=== PATIENT | female | born 1940 | race Caucasian/White ===

== ENCOUNTER 2022-02-14 16:41 | Observation (INO) | payer MEDICARE, OTHER, SELFPAY ==
[2022-02-14 17:04] VITALS: BP 184/78; PULSE 60; RESP 22; TEMP 36.7; O2SAT 94
--- NOTE | 2022-02-14 17:10 | DI.RAD.S_ITS ---
PROCEDURE: XR CHEST 1V INDICATIONS: chest pain TECHNIQUE: One view of the chest was acquired. COMPARISON: [facility], CR, XR CHEST 2 VIEWS, 10/12/2021, 7:02. [facility], CR, XR CHEST 1 VIEW, 10/11/2021, 20:38. FINDINGS: Surgical changes and devices: A pacer device is seen. The leads are seen in stable positions. Lungs and pleura: Low lung volumes are noted. This causes a crowded appearance to the lung markings and limits evaluation. Mild, streaky opacities are seen at the lung bases. No pneumothorax is seen. Trace blunting of the costophrenic angles can be seen. Mediastinum: Mediastinal contours appear normal. Heart size is normal. Bones and chest wall: No suspicious bony lesions. Age-appropriate bony degenerative changes are seen. Overlying soft tissues appear unremarkable. IMPRESSION: Low lung volumes and mild interstitial prominence, with potential small pleural effusions. If clinically appropriate, a short-term followup chest series (with PA and lateral views) performed in deep inspiration is suggested for further evaluation. Stable pacer device. Dictated by: Lucas Figueroa M.D. on 02/14/2022 at 16:42 Approved by: Lucas Figueroa M.D. on 02/14/2022 at 16:44
[2022-02-14 17:37] LABS: Add Manual Diff / Slide Review NO; Basophils Absolute Auto 0 /uL (0-100); Basophils Percent Auto 0.6 % (0-2); Eosinophils Absolute Auto 200 /uL (0-450); Eosinophils Percent Auto 2.5 % (2-4); Hematocrit 30.4 % (36-46); Hemoglobin 10.4 g/dL (12.0-16.0); Lymphocytes Absolute Auto 400 /uL (1100-4500); Mean Corpuscular HGB Conc 34.3 % (30-36); Mean Corpuscular Hemoglobin 31.5 PG (26-34); Mean Corpuscular Volume 91.8 fL (80-100); Monocytes Absolute Auto 500 /uL (0-900); Monocytes Percent Auto 5.8 % (3-14); Neutrophils Absolute Auto 6700 /uL (1500-7000); Neutrophils Percent Auto 86.1 % (50-75); Platelet Count 170 X10^3/uL (150-400); Red Blood Cell Count 3.31 X10^6/uL (4.0-5.2); Red Cell Distribution Width 14.2 % (11.6-14.8); White Blood Cell Count 7.8 X10^3/uL (4.5-11.0)
[2022-02-14 17:56] LABS: Prothrombin Time 46.4 SECONDS (10.1-12.7)
[2022-02-14 18:02] LABS: Alanine Aminotransferase 19 IU/L (<35); Albumin 3.7 g/dL (3.5-5.0); Albumin Globulin Ratio 1.2 (1.0-2.8); Alkaline Phosphatase 118 U/L (38-126); Aspartate Aminotransferase 27 IU/L (14-36); BUN Creatinine Ratio 21.8 (6-22); Bilirubin Total 0.6 mg/dL (0.2-1.3); Blood Urea Nitrogen 29 mg/dL (7-17); Calcium 8.4 mg/dL (8.4-10.2); Carbon Dioxide 23 mmol/L (22-32); Chloride 109 mmol/L (98-107); Creatine Kinase 61 U/L (30-135); Estimated Glomerular Filt Rate 40 mL/min (>60); Glucose 110 mg/dL (80-110); HEMOLYSIS < 15 (0-50); Lipase 70 U/L (23-300); Magnesium 1.8 mg/dL (1.6-2.3); Potassium 4.9 mmol/L (3.4-5.1); Sodium 139 mmol/L (137-145); Total Protein 6.7 g/dL (6.3-8.2)
[2022-02-14 18:13] LABS: Troponin I 0.017 ng/mL (0.01-0.034)
[2022-02-14 20:19] VITALS: BP 217/86; PULSE 64; RESP 18; O2SAT 98
--- NOTE | 2022-02-14 21:28 | ED_ITS ---
HPI - GI Bleed General Chief complaint: GI Bleed Stated complaint: pain to back of both legs/GI BLEED/SOB/BP HIGH Time Seen by Provider: 02/14/22 21:27 Source: patient and family Mode of arrival: Ambulatory History of Present Illness HPI Narrative: Patient is an 81-year-old female history of atrial fibrillation on warfarin presenting today with a variety of complaints. She has had ongoing sciatic like pain down her legs for about 2 months. She was put on prednisone by her primary care provider which did seem to help but now she is having increased pain again. For the last few days she has had some black stool numerous episodes. She has not have any abdominal pain no nausea vomiting. She is having some shortness of breath with exertion as well minimal orthopnea. No real chest pain or palpitations. She has not had any fever or chills. She went to walk-in clinic today the which was concerned for a GI bleed with the black stool on warfarin. Apparently she was guaiaced there and a was positive. She says she was in quite a bit of pain at home today her son tried to take her blood pressure with wrist cough and you read over 200. She is also noted to be quite hypertensive here as well. Related Data Allergies Allergy/AdvReac Type Severity Reaction Status Date / Time lisinopril Allergy Verified 02/14/22 22:57 Review of Systems Review of Systems Narrative: GENERAL: Denies chills, fatigue, malaise, fever, sweats, travel HEENT: Denies sinus pain, ear pain, sore throat, difficulty swallowing, neck pain RESPIRATORY see HPI CARDIOVASCULAR: Denies chest pain, palpitations, orthopnea, edema GASTROINTESTINAL: Denies nausea, vomiting, abdominal pain, diarrhea, constipation, melena. : Denies dysuria, frequency, incontinence, hematuria, urinary retention, flank pain. MUSCULOSKELETAL: See HPI SKIN: No rash, no erythema, no pruritus NEUROLOGIC: Denies weakness, dizziness, headache, numbness, change in speech, confusion PSYCHIATRIC: No concerning psychosocial issues. 12 point review of systems is negative except for those stated above and HPI Patient History Medical History (Updated 02/15/22 @ 06:49 by Trudy Chinchilla DO) Benign essential hypertension (Unknown) Chronic anticoagulation Chronic atrial fibrillation Surgical History (Updated 02/15/22 @ 06:46 by Marlon Morales MD) History of 2 sections History of carpal tunnel surgery Social History household members: family Smoking Status: Former smoker alcohol intake: never Exam Initial Vital Signs Initial Vital Signs: Vital Signs Temperature 98.0 F 02/14/22 17:04 Pulse Rate 60 02/14/22 17:04 Respiratory Rate 22 02/14/22 17:04 Blood Pressure 184/78 H 02/14/22 17:04 Pulse Oximetry 94 02/14/22 17:04 Oxygen Delivery Method 02/14/22 17:04 GENERAL: Alert pleasant 81-year-old female and in no acute distress. HEENT: Head atraumatic,EOMI, pupils reactive, face symmetric, moist mucous membranes CARDIOVASCULAR: Regular rate and rhythm without murmurs, rubs or gallops. RESPIRATORY: Breath sounds equal bilaterally, no wheezes rales or rhonchi. ABDOMEN: Soft, nontender. Normoactive bowel sounds all 4 quadrants. No guarding or rebound. EXTREMITIES: Normal range of motion, no clubbing or edema. Neurovascularly intact NEUROLOGICAL: Alert and oriented x4.Normal gait and speech. SKIN: Warm, dry, no laceration, no petechiae, no rashes or lesions. Course Orders Ordered: ED Orders 02/14/22 22:07 BNP [NT-proBNP (BNP-Adult 18+)] Stat Hemoglobin and Hematocrit Stat Troponin & CK Cardiac Panel Stat 02/14/22 22:22 Lactate (Lactic Acid) Stat 02/15/22 00:07 COVID19 - ADMIT (RN HEMO DIALYSIS swab/PCR) Stat 02/15/22 00:22 CT angio chest abdomen pelvis Stat Acetaminophen (Acetaminophen 325 Mg Tablet) 975 mg PO Q8H PRN PRN Reason: Pain, Mild (1-3) Last Admin: 02/15/22 03:52 Dose: 975 mg Documented By: CB Losartan Potassium (Losartan 50 Mg Tablet) 100 mg PO DAILY IVETT Last Admin: 02/15/22 03:51 Dose: 100 mg Documented By: CB Morphine Sulfate (Morphine 2 Mg/Ml Inj) 2 mg IV Q4H PRN PRN Reason: Breakthrough pain only (8-10) Ondansetron HCl (Ondansetron 4 Mg/2 Ml Inj) 4 mg IV Q8HR PRN PRN Reason: Nausea And Vomiting Oxycodone HCl (Oxycodone Ir 5 Mg Tablet) 5 mg PO Q4HR PRN PRN Reason: Pain, Moderate (4-6) Discontinued Medications Furosemide (Furosemide 40 Mg/4 Ml Vial) 20 mg IV NOW ONE Stop: 02/14/22 22:51 Last Admin: 02/14/22 23:16 Dose: 20 mg Documented By: KATYA Nicardipine HCl 25 mg/ Sodium (Chloride) 250 mls @ 50 mls/hr IV TITRATE IVETT; Protocol Labetalol HCl (Labetalol 20 Mg/4 Ml Syringe) 5 mg IV NOW ONE Stop: 02/15/22 00:03 Last Admin: 02/15/22 00:09 Dose: 5 mg Documented By: KATYA Labetalol HCl (Labetalol 20 Mg/4 Ml Syringe) 10 mg IV NOW ONE Stop: 02/15/22 00:17 Last Admin: 02/15/22 03:04 Dose: 10 mg Documented By: ISAURA Morphine Sulfate (Morphine 2 Mg/Ml Inj) 2 mg IV NOW ONE Stop: 02/14/22 22:55 Last Admin: 02/15/22 00:01 Dose: 2 mg Documented By: KATYA Vital Signs Vital signs: Vital Signs - 8 hr 02/14/22 23:48 02/14/22 23:58 02/15/22 00:00 Pulse Rate 61 63 Respiratory Rate 20 18 Blood Pressure 190/84 H 234/95 H Pulse Oximetry 96 88 L 96 Oxygen Delivery Method Room Air Room Air 02/15/22 00:20 02/15/22 01:34 Pulse Rate 68 66 Respiratory Rate 18 18 Blood Pressure 207/117 H 139/80 Pulse Oximetry 95 96 Oxygen Delivery Method Room Air Room Air MDM - GI Bleed Lab Data Result diagrams: 02/14/22 22:07 02/14/22 17:23 Labs: Lab Results 02/14/22 02/14/22 02/14/22 Range/Units 17:23 17:23 17:23 WBC 7.8 (4.5-11.0) X10^3/uL RBC 3.31 L (4.0-5.2) X10^6/uL Hgb 10.4 L (12.0-16.0) g/dL Hct 30.4 L (36-46) % MCV 91.8 (80-100) fL MCH 31.5 (26-34) PG MCHC 34.3 (30-36) % RDW 14.2 (11.6-14.8) % Plt Count 170 (150-400) X10^3/uL Neut % (Auto) 86.1 H (50-75) % Lymph % (Auto) 5.0 L (25-40) % Billings % (Auto) 5.8 (3-14) % Eos % (Auto) 2.5 (2-4) % Baso % (Auto) 0.6 (0-2) % Neut # (Auto) 6700 (5485-6866) /uL Lymph # (Auto) 400 L (1567-4886) /uL Billings # (Auto) 500 (0-900) /uL Eos # (Auto) 200 (0-450) /uL Baso # (Auto) 0 (0-100) /uL PT 46.4 H (10.1-12.7) SECONDS INR 4.0 H (0.9-1.3) Sodium 139 (137-145) mmol/L Potassium 4.9 (3.4-5.1) mmol/L Chloride 109 H (98-107) mmol/L Carbon Dioxide 23 (22-32) mmol/L BUN 29 H (7-17) mg/dL Creatinine 1.33 H (0.52-1.04) mg/dL Estimated GFR 40 L (>60) mL/min BUN/Creatinine Ratio 21.8 (6-22) Glucose 110 (80-110) mg/dL Lactate (0.7-2.1) mmol/L Calcium 8.4 (8.4-10.2) mg/dL Magnesium 1.8 (1.6-2.3) mg/dL Total Bilirubin 0.6 (0.2-1.3) mg/dL AST 27 (14-36) IU/L ALT 19 (<35) IU/L Alkaline Phosphatase 118 (38-126) U/L Total Creatine Kinase 61 (30-135) U/L CK-MB (CK-2) TNP CK-MB (CK-2) Rel Index TNP Troponin I 0.017 (0.01-0.034) ng/mL NT-Pro-B Natriuret Pep (<450) pg/mL Total Protein 6.7 (6.3-8.2) g/dL Albumin 3.7 (3.5-5.0) g/dL Globulin 3.0 (1.7-4.1) g/dL Albumin/Globulin Ratio 1.2 (1.0-2.8) Lipase 70 (23-300) U/L SARS-CoV-2 (PCR) (Negative) 02/14/22 02/14/22 02/14/22 Range/Units 22:07 22:07 22:22 WBC (4.5-11.0) X10^3/uL RBC (4.0-5.2) X10^6/uL Hgb 10.7 L (12.0-16.0) g/dL Hct 30.8 L (36-46) % MCV (80-100) fL MCH (26-34) PG MCHC (30-36) % RDW (11.6-14.8) % Plt Count (150-400) X10^3/uL Neut % (Auto) (50-75) % Lymph % (Auto) (25-40) % Billings % (Auto) (3-14) % Eos % (Auto) (2-4) % Baso % (Auto) (0-2) % Neut # (Auto) (7044-7534) /uL Lymph # (Auto) (3446-3408) /uL Billings # (Auto) (0-900) /uL Eos # (Auto) (0-450) /uL Baso # (Auto) (0-100) /uL PT (10.1-12.7) SECONDS INR (0.9-1.3) Sodium (137-145) mmol/L Potassium (3.4-5.1) mmol/L Chloride (98-107) mmol/L Carbon Dioxide (22-32) mmol/L BUN (7-17) mg/dL Creatinine (0.52-1.04) mg/dL Estimated GFR (>60) mL/min BUN/Creatinine Ratio (6-22) Glucose (80-110) mg/dL Lactate 1.2 (0.7-2.1) mmol/L Calcium (8.4-10.2) mg/dL Magnesium (1.6-2.3) mg/dL Total Bilirubin (0.2-1.3) mg/dL AST (14-36) IU/L ALT (<35) IU/L Alkaline Phosphatase (38-126) U/L Total Creatine Kinase 58 (30-135) U/L CK-MB (CK-2) TNP CK-MB (CK-2) Rel Index TNP Troponin I 0.027 (0.01-0.034) ng/mL NT-Pro-B Natriuret Pep 5540 H (<450) pg/mL Total Protein (6.3-8.2) g/dL Albumin (3.5-5.0) g/dL Globulin (1.7-4.1) g/dL Albumin/Globulin Ratio (1.0-2.8) Lipase (23-300) U/L SARS-CoV-2 (PCR) (Negative) 02/15/22 Range/Units 00:07 WBC (4.5-11.0) X10^3/uL RBC (4.0-5.2) X10^6/uL Hgb (12.0-16.0) g/dL Hct (36-46) % MCV (80-100) fL MCH (26-34) PG MCHC (30-36) % RDW (11.6-14.8) % Plt Count (150-400) X10^3/uL Neut % (Auto) (50-75) % Lymph % (Auto) (25-40) % Billings % (Auto) (3-14) % Eos % (Auto) (2-4) % Baso % (Auto) (0-2) % Neut # (Auto) (7220-4560) /uL Lymph # (Auto) (2020-4000) /uL Billings # (Auto) (0-900) /uL Eos # (Auto) (0-450) /uL Baso # (Auto) (0-100) /uL PT (10.1-12.7) SECONDS INR (0.9-1.3) Sodium (137-145) mmol/L Potassium (3.4-5.1) mmol/L Chloride (98-107) mmol/L Carbon Dioxide (22-32) mmol/L BUN (7-17) mg/dL Creatinine (0.52-1.04) mg/dL Estimated GFR (>60) mL/min BUN/Creatinine Ratio (6-22) Glucose (80-110) mg/dL Lactate (0.7-2.1) mmol/L Calcium (8.4-10.2) mg/dL Magnesium (1.6-2.3) mg/dL Total Bilirubin (0.2-1.3) mg/dL AST (14-36) IU/L ALT (<35) IU/L Alkaline Phosphatase (38-126) U/L Total Creatine Kinase (30-135) U/L CK-MB (CK-2) CK-MB (CK-2) Rel Index Troponin I (0.01-0.034) ng/mL NT-Pro-B Natriuret Pep (<450) pg/mL Total Protein (6.3-8.2) g/dL Albumin (3.5-5.0) g/dL Globulin (1.7-4.1) g/dL Albumin/Globulin Ratio (1.0-2.8) Lipase (23-300) U/L SARS-CoV-2 (PCR) Negative (Negative) Imaging Data Chest x-ray: Radiologist's Impression: [address] [address] XRay Report Signed Patient: MARIEL QUINTEROS MR#: [id number] : 1940 Acct:[id number] Age/Sex: 81 / F Date of Service: 02/14/22 Loc: ED Accession Number: [id number] ?? Procedure: XR chest 1V Ordering Provider: Stephani Rendon D.O. PROCEDURE:? XR CHEST 1V ? INDICATIONS:? chest pain ? TECHNIQUE:? One view of the chest was acquired.? ? COMPARISON:? [facility], CR, XR CHEST 2 VIEWS, 10/12/2021, 7:02.? [facility], CR, XR CHEST 1 VIEW, 10/11/2021, 20:38. ? FINDINGS:? ? Surgical changes and devices:? A pacer device is seen.? The leads are seen in stable positions.? ? Lungs and pleura:? Low lung volumes are noted. This causes a crowded appearance to the lung markings and limits evaluation.? Mild, streaky opacities are seen at the lung bases. ?No pneumothorax is seen.? Trace blunting of the costophrenic angles can be seen. ? Mediastinum:? Mediastinal contours appear normal.? Heart size is normal.? ? Bones and chest wall:? No suspicious bony lesions.? Age-appropriate bony degenerative changes are seen.? Overlying soft tissues appear unremarkable.? ? ? IMPRESSION:? Low lung volumes and mild interstitial prominence, with potential small pleural effusions. ? If clinically appropriate, a short-term followup chest series (with PA and lateral views) performed in deep inspiration is suggested for further evaluation.? ? Stable pacer device. ? ? Dictated by: Lucas Figueroa M.D. on 02/14/2022 at 16:42 ? ? CT scan - head: Radiologist's Impression: CT Scan Report Signed Patient: MARIEL QUINTEROS MR#: [id number] : 1940 Acct:[id number] Age/Sex: 81 / F Date of Service: 02/14/22 Loc: ED Accession Number: [id number] ?? Procedure: CT head/brain wo con Ordering Provider: Trudy Chinchilla D.O. PROCEDURE:? CT HEAD/BRAIN WO CON ? INDICATIONS:? high inr headache ? TECHNIQUE:? Noncontrast 4.5 mm thick angled axial sections acquired from the foramen magnum to the vertex, with coronal and sagittal reformats.? For radiation dose reduction, the following was used:? automated exposure control, adjustment of mA and/or kV according to patient size.? ? COMPARISON:? None. ? FINDINGS:? Image quality:? Excellent.? ? CSF spaces:? Basal cisterns are patent.? No extra-axial fluid collections.? There is mild cerebral volume loss, with resultant ventricular and sulcal prominence.? ? Brain:? No intracranial hemorrhage, mass, or mass effect.? There are subcortical, periventricular and deep white matter hypodensities consistent with mild chronic small vessel ischemic changes.? The guan-white matter junction appears preserved.? There is intracranial internal carotid artery atherosclerosis.? ? Skull and face:? Calvarium and visualized facial bones appear intact, without suspicious lesions.? ? Sinuses:? Visualized sinuses and mastoids are clear.? ? IMPRESSION:? ? 1. No acute intracranial abnormality. ? 2. Mild chronic white matter small vessel ischemic changes and cerebral volume loss.? ? ? Dictated by: Tino Rico M.D. on 02/14/2022 at 22:29 ?? ECG Data Interpretation: Normal sinus rhythm rate 60 p.r. interval 222 QRS [address] changes no T- wave inversions no priors to compare paced rhythm MDM Narrative Medical decision making narrative: Patient is here for possible GI bleed however she has quite variety of symptoms. Ongoing sciatic pain has been there for at least 2 months. She is noted to be extremely hypertensive which is fairly persistent. Concern that she may have peripheral vascular disease or aortic disease CT angio was ordered which did reveal small ascending thoracic aneurysm of 4.2 cm. However she has absolutely no chest pain. Her hemoglobin is stable x2 no bloody bowel movements here in the ED. she does have an elevated BNP which would explain her dyspnea with exertion. No prior history of congestive heart failure. Possible is hypertensive emergency with elevated blood pressures and elevated BNP. She is given 5 mg of labetalol and blood pressure decreases to 139. Dr. Banda updated patient's symptoms test results and agrees for admission Discharge Plan Departure Patient Disposition: Admitted As Inpatient Clinical Impression: Hypertensive emergency, Chronic atrial fibrillation Admit Date/Time: 02/15/22 01:55 Admit Provider: Marlon Morales
[2022-02-14 21:30] VITALS: PULSE 94; RESP 24; O2SAT 89
--- NOTE | 2022-02-14 21:41 | DI.CT.S_ITS ---
PROCEDURE: CT HEAD/BRAIN WO CON INDICATIONS: high inr headache TECHNIQUE: Noncontrast 4.5 mm thick angled axial sections acquired from the foramen magnum to the vertex, with coronal and sagittal reformats. For radiation dose reduction, the following was used: automated exposure control, adjustment of mA and/or kV according to patient size. COMPARISON: None. FINDINGS: Image quality: Excellent. CSF spaces: Basal cisterns are patent. No extra-axial fluid collections. There is mild cerebral volume loss, with resultant ventricular and sulcal prominence. Brain: No intracranial hemorrhage, mass, or mass effect. There are subcortical, periventricular and deep white matter hypodensities consistent with mild chronic small vessel ischemic changes. The guan-white matter junction appears preserved. There is intracranial internal carotid artery atherosclerosis. Skull and face: Calvarium and visualized facial bones appear intact, without suspicious lesions. Sinuses: Visualized sinuses and mastoids are clear. IMPRESSION: 1. No acute intracranial abnormality. 2. Mild chronic white matter small vessel ischemic changes and cerebral volume loss. Dictated by: Tino Rico M.D. on 02/14/2022 at 22:29 Approved by: Tino Rico M.D. on 02/14/2022 at 22:31
[2022-02-14 22:16] LABS: Hematocrit 30.8 % (36-46); Hemoglobin 10.7 g/dL (12.0-16.0)
[2022-02-14 22:25] LABS: Creatine Kinase 58 U/L (30-135)
[2022-02-14 22:38] LABS: NT-proBNP (BNP-Adult 18+) 5540 pg/mL (<450); Troponin I 0.027 ng/mL (0.01-0.034)
[2022-02-14 22:46] LABS: Lactate (Lactic Acid) 1.2 mmol/L (0.7-2.1)
[2022-02-14] MEDS: FUROSEMIDE 40 MG/4 ML VIAL 20 MG IV (23:16)
[2022-02-14 23:48] VITALS: BP 190/84; PULSE 61; RESP 20; O2SAT 96
[2022-02-14 23:58] VITALS: O2SAT 88
[2022-02-15] VITALS (11 sets, daily range): BP systolic 139–234; BP diastolic 63–117; PULSE 62–78; RESP 17–18; TEMP 36.2–36.8; O2SAT 95–96; BMI 32.1
[2022-02-15] MEDS: MORPHINE 2 MG/ML INJ IV ×2 (00:01→09:27)
[2022-02-15] MEDS: LABETALOL 20 MG/4 ML SYRINGE 5 MG IV (00:09)
--- NOTE | 2022-02-15 00:22 | DI.CT.S_ITS ---
PROCEDURE: CT ANGIO CHEST ABDOMEN PELVIS INDICATIONS: htn r/o dissection TECHNIQUE: Precontrast 5 mm thick sections acquired from the lung apices to the iliac crests. After the administration of intravenous contrast, 2.5 mm thick sections again acquired from the lung apices to the iliac crests. Maximum intensity projection (MIP) oblique sagittal and coronal reformats were then acquired. For radiation dose reduction, the following was used: automated exposure control. COMPARISON: [facility], CR, XR CHEST 1V, 02/14/2022, 17:10. FINDINGS: Image quality: Excellent. AORTA: Noncontrast images demonstrate no evidence of intramural hematoma. The aorta is normal in contour without intimal flaps to suggest dissection. There is mild aneurysmal dilatation of the ascending thoracic aorta which measures up to 4.2 cm in diameter. The aortic arch is normal in caliber, measuring up to 2.4 cm at the vertex. The proximal descending thoracic aorta is also normal in caliber, measuring up to 2.6 cm. There is conventional branching of the aortic arch. The visualized great vessels are normal in caliber and appear patent. The celiac, superior mesenteric, and inferior mesenteric arteries are patent. There is mild calcified plaque at their origins with narrowing of less than 50%. There is an accessory left renal artery. The renal arteries appear patent with mild calcified plaque associated with mild narrowing of approximately 50% at the origin of the right renal artery. The common, external, and internal iliac arteries appear patent. The common femoral and visualized proximal superficial femoral arteries appear patent. CHEST: Lower Neck: No lymphadenopathy by size criteria. Thyroid: Visualized thyroid demonstrates a small hypoattenuating left nodule measuring up to 0.8 cm. Axillae: No lymphadenopathy by size criteria. Chest Wall: There are bilateral breast implants noted. Curvilinear densities within each implant are suggestive of intracapsular rupture. Bones: Visualized osseous structures demonstrate no suspicious lesions. Lungs and Airways: There is mild compressive atelectasis bilaterally. Bilateral indistinct ground-glass opacities with septal thickening are present consistent with pulmonary edema. There are bilateral small clustered pulmonary nodules with indistinct margins consistent with a mild infectious or inflammatory process. The trachea and central airways are patent. Pleura: No pneumothorax. There are small bilateral pleural effusions. Heart: Heart size is normal. No pericardial effusion. Thoracic Vessels: The pulmonary arteries demonstrate no filling defects to suggest central pulmonary embolism. Mediastinum and Leny: There are enlarged mediastinal and hilar lymph nodes. These include a left paratracheal node measuring up to approximately the 1.6 cm short axis on series 6, image 17. Esophagus: No wall thickening. No hiatal hernia. Lung bases: Unremarkable. Heart: Heart is normal in size. ABDOMEN: Liver: No mass lesion. Gallbladder: Within normal limits without calcified gallstones. Biliary ducts: No biliary ductal dilatation. Pancreas: Unremarkable. Spleen: Normal in size. Adrenal Glands: No adrenal nodules. Kidneys and Ureters: No hydronephrosis. There is a right renal cortical cyst measuring approximately 2.7 cm. Stomach and Bowel: Stomach, small bowel loops, and colon are normal in caliber and wall thickness. The appendix is normal in appearance. There is colonic diverticulosis without acute diverticulitis. Peritoneum: No abnormal intraperitoneal fluid. No free air. Ventral Wall: No hernia. Abdominal Nodes: No retroperitoneal or mesenteric adenopathy by size criteria. Vessels: Aorta and inferior vena cava are normal in size. PELVIS: Pelvic Organs: Unremarkable. Bladder: The urinary bladder is partially distended wall. Pelvic Nodes: No enlarged lymph nodes. Miscellaneous: No inguinal hernias are seen. Bones: Visualized osseous structures demonstrate no suspicious focal lesions. IMPRESSION: 1. No evidence of aortic dissection. 2. Mild aneurysmal dilatation of the ascending thoracic aorta. 3. Multiple clustered pulmonary nodules consistent with an infectious or inflammatory process. 4. Septal thickening and indistinct ground-glass opacities consistent with pulmonary edema. Dictated by: Tino Rico M.D. on 02/15/2022 at 1:12 Approved by: Tino Rico M.D. on 02/15/2022 at 1:24
[2022-02-15 02:00] LABS: COVID19 - ADMIT (NP swab/PCR) Negative (Negative)
[2022-02-15] MEDS: LABETALOL 20 MG/4 ML SYRINGE 10 MG IV (03:04)
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
[2022-02-15] MEDS: LOSARTAN 50 MG TABLET 100 MG PO (03:51)
[2022-02-15] MEDS: ACETAMINOPHEN 325 MG TABLET 975 MG PO (03:52)
--- NOTE | 2022-02-15 05:10 | PC.NURSE ---
Addendum entered by Nikki Olivo R.N. 02/15/22 06:57: Pt BP 170s-180s/70s. Notified provider. Ordering hydralazine PRN. Original Note: Pt arrived to floor around 0300. Initial BP 190s/60s. Notified provider, as cardene drip was ordered, as well as labetolol now. Instructed to give labetolol and losartan 100mg was ordered. Stated to start cardene drip if systolic reached 170 or above. Other vitals unremarkable. Given labetolol IV and Losartan after. Pt maintaining BPs in 150s/60s. Pt A&OX4, lung sounds clear/diminished, in NSR currently with an atrial pacemaker. Pt independent mostly, but had a fall downstairs so bed alarm is on and pt instructed to call whenever they want to get out of bed. Pt currently sleeping.
[2022-02-15] MEDS: OXYCODONE IR 5 MG TABLET PO (08:08)
[2022-02-15] MEDS: AMLODIPINE 5 MG TABLET PO (08:09)
--- NOTE | 2022-02-15 11:09 | CM.IDA ---
DCP Assessment Patient is 81 y/o female who presents to due to concern for Hypertension emergency and chronic Afib. Patient has hx of Hypertension, Chronic Afib, & chronic anticoagulation Patient's PCP is Dr. Nagel, patient has Medicare and [employer] Medicare insurance. Patient is DNR. MECHANICAL HANDYMAN enters room to meet with patient, patient presents as A/Ox3 in room with son. It is reported that patient resides with son. Patient endorses independence with ADLs. Patient denies any needs for DME at home. No reported DCP needs. Per Hospitalist Dr. Vera, patient is medically clear for d/c today. Plan: Patient to d/c to home today via POV with son upon medical clearance. 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 No History Provided By Patient,Family Member,Medical Record Has Patient been admitted in last 30 No days? Prior Living Arrangements House Household Members family Type of transporation used prior to Drives own vehicle admit Independent with ADL's Yes Is patient alert and oriented? Yes Discharge Plan Home Transportation Arrangement Home via POV with son. Referrals Initiated None needed Please Provide Date Initial DC 02/15/22 Assessment Was Performed
--- NOTE | 2022-02-15 11:22 | PM.DS.1 ---
History of Present Illness History of Present Illness Date Patient Seen: 02/15/22 Time Patient Seen: 11:23 Chief complaint: pain to back of both legs/GI BLEED/SOB/BP HIGH Narrative: Per Dr. Morales, Patient is an 81-year-old female history of atrial fibrillation on warfarin presenting today with a variety of complaints.? She has had ongoing sciatic like pain down her legs for about 2 months.? She was put on prednisone by her primary care provider which did seem to help but now she is having increased pain again.? For the last few days she has had some black stool numerous episodes.? She has not have any abdominal pain no nausea vomiting.? She is having some shortness of breath with exertion as well minimal orthopnea.? No real chest pain or palpitations.? She has not had any fever or chills.? She went to walk-in clinic today the which was concerned for a GI bleed with the black stool on warfarin.? Apparently she was guaiaced there and a was positive. She says she was in quite a bit of pain at home today her son tried to take her blood pressure with wrist cough and you read over 200.? She is also noted to be quite hypertensive here as well. In the ER patient received total of 15 mg of IV labetalol did improve a little bit but after pain control with morphine 2 mg patient still continues to have blood pressures above 200, was called in for admission. When I saw the patient does seem to be comfortable but repeat blood pressures are in 190s. Nicardipine drip started in the ER patient was transferred for further care to the medical floor. Patient says that the pain medication definitely helping but her major issue is actually the back pain that made her to go to the ER along with the headaches caused by elevated blood pressure. Patient denies any chest pain. No palpitations, no breathing difficulties. CT scan done in the ER shows dilated ascending aortic and no dissection. Patient denies any abdominal pain. Her back pain is specifically in the lower back radiating to both legs primarily on the left. Patient had a fall and mildly injured her left knee today. Home medication Warfarin 2 mg daily Losartan 25 mg daily Aspirin 81 mg daily Sotalol 80 mg p.o. b.i.d. Discharge Providers Provider Date of admission: 02/15/22 01:55 Discharge Date: 02/15/22 Primary care physician: Marques Nagel MD Discharge provider: Villa Vera DO Summary Hospital Course Discharge Diagnosis: (1) Hypertensive urgency (2) Acute low back pain secondary to Right piriformis syndrome (3) Chronic atrial fibrillation: (4) Chronic anticoagulation: (5) Benign essential hypertension: (6) GI bleeding (7) Probable CKD stage III Hospital Course: This is an 81-year-old female admitted with a variety of complaints including severe hypertension, GI bleeding, and low back pain. Her low back pain was consistent with piriformis syndrome and was without neurological deficits. Her pain improved with acute pain management. With improvement in her pain her blood pressure was improved, though given how elevated it was her home losartan was increased from 25-50 mg. For her GI bleed, she presented with dark stools. She was tolerating a diet and h/h remained stable and slightly increased after stopping her coumadin. Outpatient follow up for EGD and colonoscopy is recommended. She did appear to have taken some indomethacin recently based on prescription history, so pantoprazole was added for possible upper GI source. Creatinine was elevated at 1.3, but similar to previous lab values, this most likely represents a CKD stage III. Exam Vital Signs (past 8 hours): - 02/15/22 03:51 02/15/22 03:47 02/15/22 04:00 Temperature 97.8 F Pulse Rate 63 63 63 Respiratory Rate 18 Blood Pressure 150/91 H 152/67 H 152/67 H Pulse Oximetry 95 02/15/22 08:05 Temperature 97.1 F L Pulse Rate 62 Respiratory Rate 18 Blood Pressure 160/72 H Pulse Oximetry 96 Oxygen Delivery Method Room Air Narrative Exam Narrative: General:? Patient is well developed and well nourished, in no distress at this time. Chest:? Normal AP diameter and contour without kyphoscoliosis, no tachypnea, equal chest rise bilaterally. Lungs:? CTA b/l no wheezing rhonchi or rales. Cardio:?RRR no m/r/g. Abdomen: S NT ND. Musculoskeletal:? Muscle strength and tone are equal within normal limits, no deformity. Extremities: No edema or joint effusions. No cyanosis or clubbing. Neuro:? Alert and orientated x3,? sensation to touch intact in all extremities, no gross deficits noted of cranial nerves. Psych:? Patient has a well-kept appearance, appropriate affect, mental status attitude thought context and judgment are appropriate for age. Objective Labs Result Diagrams: 02/14/22 22:07 02/14/22 17:23 Labs: Laboratory Results - last 24 hr 02/14/22 02/14/22 02/14/22 17:23 17:23 17:23 WBC 7.8 RBC 3.31 L Hgb 10.4 L Hct 30.4 L MCV 91.8 MCH 31.5 MCHC 34.3 RDW 14.2 Plt Count 170 Neut % (Auto) 86.1 H Lymph % (Auto) 5.0 L Dixie % (Auto) 5.8 Eos % (Auto) 2.5 Baso % (Auto) 0.6 Neut # (Auto) 6700 Lymph # (Auto) 400 L Dixie # (Auto) 500 Eos # (Auto) 200 Baso # (Auto) 0 PT 46.4 H INR 4.0 H Sodium 139 Potassium 4.9 Chloride 109 H Carbon Dioxide 23 BUN 29 H Creatinine 1.33 H Estimated GFR 40 L BUN/Creatinine Ratio 21.8 Glucose 110 Lactate Calcium 8.4 Magnesium 1.8 Total Bilirubin 0.6 AST 27 ALT 19 Alkaline Phosphatase 118 Total Creatine Kinase 61 CK-MB (CK-2) TNP CK-MB (CK-2) Rel Index TNP Troponin I 0.017 NT-Pro-B Natriuret Pep Total Protein 6.7 Albumin 3.7 Globulin 3.0 Albumin/Globulin Ratio 1.2 Lipase 70 SARS-CoV-2 (PCR) 02/14/22 02/14/22 02/14/22 22:07 22:07 22:22 WBC RBC Hgb 10.7 L Hct 30.8 L MCV MCH MCHC RDW Plt Count Neut % (Auto) Lymph % (Auto) Dixie % (Auto) Eos % (Auto) Baso % (Auto) Neut # (Auto) Lymph # (Auto) Dixie # (Auto) Eos # (Auto) Baso # (Auto) PT INR Sodium Potassium Chloride Carbon Dioxide BUN Creatinine Estimated GFR BUN/Creatinine Ratio Glucose Lactate 1.2 Calcium Magnesium Total Bilirubin AST ALT Alkaline Phosphatase Total Creatine Kinase 58 CK-MB (CK-2) TNP CK-MB (CK-2) Rel Index TNP Troponin I 0.027 NT-Pro-B Natriuret Pep 5540 H Total Protein Albumin Globulin Albumin/Globulin Ratio Lipase SARS-CoV-2 (PCR) 02/15/22 00:07 WBC RBC Hgb Hct MCV MCH MCHC RDW Plt Count Neut % (Auto) Lymph % (Auto) Dixie % (Auto) Eos % (Auto) Baso % (Auto) Neut # (Auto) Lymph # (Auto) Dixie # (Auto) Eos # (Auto) Baso # (Auto) PT INR Sodium Potassium Chloride Carbon Dioxide BUN Creatinine Estimated GFR BUN/Creatinine Ratio Glucose Lactate Calcium Magnesium Total Bilirubin AST ALT Alkaline Phosphatase Total Creatine Kinase CK-MB (CK-2) CK-MB (CK-2) Rel Index Troponin I NT-Pro-B Natriuret Pep Total Protein Albumin Globulin Albumin/Globulin Ratio Lipase SARS-CoV-2 (PCR) Negative PFSH Medical History (Updated 02/15/22 @ 06:49 by Trudy Chinchilla DO) Benign essential hypertension (Unknown) Chronic anticoagulation Chronic atrial fibrillation Surgical History (Updated 02/15/22 @ 06:46 by Marlon Morales MD) History of 2 sections History of carpal tunnel surgery Social History household members: family Smoking Status: Former smoker alcohol intake: never Discharge Plan Discharge Plan Patient Disposition: Home Provider Discharge Comment: You were admitted to the hospital with high blood pressures and black stools. Your blood counts remained stable and it is recommended your coumadin be stopped until colonoscopy and or EGD performed as an outpatient. Please follow up with your PCP as soon as possible to review hospitalization and obtain referral for colonoscopy. Your BP medications were increased slightly. PCP can help adjust this medication as well. Avoid taking indomethacin for pain, as this can cause GI bleeding with your warfarin. New pain medications were sent. Handout provided for home exercises for piriformis syndrome. Discharge orders & Medications Prescriptions: New oxycodone 5 mg Tablet 5 mg PO Q4HR PRN (Reason: Pain, Moderate (4-6)) 7 Days Qty: 20 0RF methocarbamol 750 mg tablet 750 mg PO Q8H PRN (Reason: spasm) 14 Days Qty: 30 0RF losartan 50 mg tablet 50 mg PO DAILY 30 Days Qty: 30 0RF pantoprazole 40 mg tablet,delayed release (DR/EC) 40 mg PO DAILY 30 Days Qty: 30 0RF Continued atorvastatin 80 mg tablet 80 mg PO DAILY estradiol 1 mg tablet 1 mg PO DAILY sotalol 80 mg tablet 80 mg PO BID Discontinued warfarin [Jantoven] 2.5 mg tablet 2.5 mg PO DAILY losartan 25 mg tablet 25 mg PO DAILY Follow up/Referrals: Marques Nagel MD [Primary Care Provider] - Diet/Activity/Treatments Diet: Diet as Tolerated Activity: As tolerated Discharge Data Primary Care Provider: Marques Nagel Attending Provider: Marlon Morales
--- NOTE | 2022-02-15 12:44 | PC.NURSE ---
Pt is A&OX3 this a.m. VSS, afebrile one RA. NSR on telemetry. Pt is c/o head ache this a.m. and chronic back pain, but she is able to move and ambulate well with SBA to the BR. She is evaluated by the hospitalist and is cleared for discharge home this a.m. Son Rob is at the bedside, with patient and MD.She verbalizes understanding of discharge instructions and medication as well as follow up plan for discharge.She is escorted via w/ch by HEAD OPERATOR [employer] to private vehicle for discharge home at approximately 1220 pm this afternoon.
== END 2022-02-15 12:20 | disposition home or self-care (01) ==
LOC: ED 21:27 → AC 02-15 02:19
PROVIDERS: Emergency Medicine; Admitting Provider Family Medicine; Emergency Provider Emergency Medicine; PCP Internal Medicine; Referring Provider Emergency Medicine; Visit Provider Family Medicine
DX: I16.1 Hypertensive emergency (principal); M54.50 Low back pain, unspecified; K92.1 Melena; I10 Essential (primary) hypertension; I48.20 Chronic atrial fibrillation, unspecified; Z79.01 Long term (current) use of anticoagulants; Z20.822 Contact with and (suspected) exposure to COVID-19
CPT/HCPCS: 36415; 70450; 71045; 71275; 74174; 80053; 82550; 83605; 83690; 83735; 83880; 84484; 85014; 85018; 85025; 85610; 87635; 93005; 93010; 96374; 96375; 96376; 99285; C9803; G0378; J1940; J2270; Q9967

== ENCOUNTER → 2022-02-25 11:28 | Outpatient (CLI) | payer MEDICARE, OTHER, SELFPAY ==
[2022-02-15 02:07] VITALS: BMI 32.1
--- NOTE | 2022-02-25 11:31 | DI.CT.S_ITS ---
PROCEDURE: CT LUMBAR SPINE WO CON INDICATIONS: Spinal stenosis, lumbar region TECHNIQUE: Noncontrast 3 mm thick sections acquired from the T12 level to the sacrum. Sagittal and coronal reformats were constructed. For radiation dose reduction, the following was used: automated exposure control. COMPARISON: None. FINDINGS: Image quality: Excellent. Bones: There is no visualized fracture or dislocation. No suspicious osseous lesions. Bridging anterior osteophytes are present at T10-11, L5-S1. Left luis-laminectomy changes are present at L4-5. Multilevel moderate to severe disc space narrowing is present. Vacuum discs are identified from L2-3 through L5-S1. There is 4 mm anterolisthesis of L3 on L4 as well as 2 mm retrolisthesis of L5 on S1. There is mild rightward curvature of the lumbar spine with apex at L3. Minimal disc bulge L1-2, mild L2-3, L3-4 including a left lateral component, L4-5 including a left lateral/foraminal component L5-S1. There is severe spinal stenosis with canal compression at L3-4, moderate L5-S1. Minimal bilateral foraminal narrowing is noted at L1-2, L2-3, mild to moderate right and moderate left L3-4, severe left, mild right L4-5, severe bilateral, right greater than left L5-S1 with slight appearance of nerve root compression of the exiting right L5 nerve roots. Multilevel facet and ligamentum flavum hypertrophy are present. Soft tissues: No retroperitoneal masses or hematomas. Visualized aorta is normal in caliber. Colonic diverticular present without associated inflammatory change. IMPRESSION: Multilevel disc bulges. Multilevel spinal stenosis, severe at L3-4, moderate L5-S1 secondary to disc bulge with contributing effect of facet/ligamentum flavum arthropathy. Multilevel foraminal narrowing most severe at L5-S1 secondary to facet arthropathy with mild compression of the exiting right L5 nerve root. Dictated by: Gina Preciado M.D. on 02/27/2022 at 8:42 Approved by: Gina Preciado M.D. on 02/27/2022 at 8:55
== END ==
PROVIDERS: PCP Internal Medicine; Referring Provider Orthopaedic Surgery Orthopaedic Surgery of the Spine; Visit Provider Orthopaedic Surgery Orthopaedic Surgery of the Spine
DX: M48.062 Spinal stenosis, lumbar region with neurogenic claudication (principal); M48.07 Spinal stenosis, lumbosacral region; M51.36 Other intervertebral disc degeneration, lumbar region; M51.37 Other intervertebral disc degeneration, lumbosacral region; M47.816 Spondylosis without myelopathy or radiculopathy, lumbar region; M47.817 Spondylosis without myelopathy or radiculopathy, lumbosacral region
CPT/HCPCS: 72131

== ENCOUNTER → 2024-10-08 12:19 | Outpatient (CLI) | payer MEDICARE, OTHER, SELFPAY ==
[2022-02-15 02:07] VITALS: BMI 32.1
--- NOTE | 2024-10-08 12:21 | DI.ECHO.S_ITS ---
[facility] : : [id number] : : [facility] : : [place], : : [place] [address] : : Phone: [phone] Echocardiogram Report + + :Name: MARIEL QUINTEROS Study Date: 10/08/2024 Height: 64 in : :[facility] ReadingLocation: Weight: 160 lb : : Gender: Female BSA: 1.8 m2 : :: 1940 Age: 84 yrs BP: 143/69 mmHg: :Reason For Study: ATRIAL FIBRILLATION : :Ordering Physician: JANIE, : :JACKSON Performed By: Aden Flores : :Referring: UNSPECIFIED : + + Interpretation Summary TDS PLAX/SAX DUE TO BREAST IMPLANTS The left ventricle is normal in size. The ejection fraction is estimated to be 50-55%. The right ventricle is normal in size and function. There is a pacemaker lead in the right ventricle. There is mild to moderate mitral regurgitation. There is mild aortic regurgitation. There is mild tricuspid regurgitation. The right ventricular systolic pressure is estimated to be at least 25 mmHg based on an estimated right atrial pressure of 3 mm Hg. The ascending aorta is mild-moderately enlarged. 4.2 cm in diameter. Procedure: A two-dimensional transthoracic echocardiogram with color flow and Doppler was performed. The study quality was technically adequate. Most of the acoustic windows were suboptimal, but the best imaging was obtained from the apical window. There is no prior echocardiogram noted for this patient. The patient has a paced rhythm. Left Ventricle: The left ventricle is normal in size. There is normal left ventricular wall thickness. There is no ventricular septal defect visualized. The ejection fraction is estimated to be 50-55%. There are no focal wall motion abnormalities. Septal motion is consistent with conduction abnormality. MV E/A: 0.92 Med Peak E' Dimitris: 4.0 cm/sec E/E' med: 19.0. Right Ventricle: The right ventricle is normal in size and function. There is a pacemaker lead in the right ventricle. Atria: The left atrium is moderately dilated. Right atrial size is normal. There is a catheter/pacemaker lead seen in the right atrium. There is no Doppler evidence for an interatrial shunt. Mitral Valve: There is moderate mitral annular calcification. No significant mitral valve stenosis. There is mild to moderate mitral regurgitation. Aortic Valve: The aortic valve is trileaflet. The aortic valve is mildly calcified. There is no aortic valve stenosis. There is mild aortic regurgitation. Tricuspid Valve: The tricuspid valve is normal. There is mild tricuspid regurgitation. The right ventricular systolic pressure is estimated to be at least 25 mmHg based on an estimated right atrial pressure of 3 mm Hg. Pulmonic Valve: The pulmonic valve is not well seen, but is grossly normal. There is no pulmonic valvular regurgitation. Great Vessels: The aortic root is not well visualized but is probably normal size. The ascending aorta is mild-moderately enlarged. The pulmonary artery is normal size. The IVC is of normal diameter and collapses greater than 50% with a sniff. This suggests a low right atrial pressure of 3 mm Hg. Pericardium/ Pleura There is no pericardial effusion. There is no pleural effusion. MMode/2D Measurements & Calculations LVIDd: 4.6 cm AoV Openin.6 cm LVIDs: 3.2 cm LVOT diam: 2.0 cm IVSd: 1.0 cm Ao root diam: 3.4 cm LVPWd: 1.1 cm asc Aorta Diam: 4.2 cm LV lucero. diameter/BSA (cm/m^2): 2.6 LV sys. diameter/BSA (cm/m^2): 1.8 FS: 31.4 % EPSS: 0.89 cm LA A2 area: 23.8 cm2 RA long axis: 5.1 cm LA A4 area: 19.9 cm2 RA area: 12.4 cm2 LA length (vol): 5.2 cm RA vol: 25.7 ml LA vol: 76.6 ml RA : 14.4 ml/m2 LA vol index: 43.1 ml/m2 RVD1 (basal): 3.3 cm IVC diam: 1.8 cm RVD2 (mid): 3.0 cm TAPSE: 2.5 cm Doppler Measurements & Calculations Ao V2 max: 160.5 cm/sec LVOT Max Dimitris: 92.1 cm/sec Ao V2 mean: 103.3 cm/sec LV V1 max P.4 mmHg Ao V2 VTI: 38.1 cm LV V1 VTI: 24.6 cm Ao max P.3 mmHg Ao mean P.0 mmHg ZE(I,D): 2.0 cm2 MV E max dimitris: 75.6 cm/sec ZE(V,D): 1.8 cm2 MV A max dimitris: 82.1 cm/sec ZE indexed to BSA (cm^2/m^2): 1.1 MV E/A: 0.92 sev ratio: 0.64 Med Peak E' Dimitris: 4.0 cm/sec E/E' med: 19.0 Lat Peak E' Dimitris: 6.1 cm/sec E/E' lat: 12.4 E/e' average: 15.7 MV dec time: 0.18 sec TR max dimitris: 241.0 cm/sec TR max P.2 mmHg PA V2 max: 77.3 cm/sec SV(LVOT): 76.4 ml PA V2 mean: 54.5 cm/sec PA mean P.3 mmHg PA pr(Accel): 39.6 mmHg Reading Physician:03:22 PM
== END ==
LOC: ECHO 12:21
PROVIDERS: PCP Internal Medicine; Referring Provider Physician Assistant; Visit Provider Physician Assistant
DX: I08.3 Combined rheumatic disorders of mitral, aortic and tricuspid valves (principal); I77.89 Other specified disorders of arteries and arterioles; I48.0 Paroxysmal atrial fibrillation; I49.5 Sick sinus syndrome; I10 Essential (primary) hypertension; E78.5 Hyperlipidemia, unspecified
CPT/HCPCS: 93306